=== PATIENT | female | born 1965 | race Caucasian/White ===

== ENCOUNTER → 2018-07-24 | Outpatient (CLI) | payer OTHER ==
[~2018-07-24] MED LIST: BUSPIRONE HCL10 MG PO; CLONAZEPAM 1 MG1 M1 PO; CLONAZEPAM0.25 MG PO; CYMBALTA60 MG PO; ESTRADIOL 1 MG T1 M1 PO; FLEXERIL PO; NABUMETONE 750750 M1 PO; NEURONTIN600 MG PO; TOPROL XL25 MG PO; TRAMADOL 50 MG50 MG PO; ZOLPIDEM TARTRA10 MG PO
--- NOTE | ~2018-07-24 | 2DMMODE ---
[facility] [address] [address] 2 D/M-MODE ECHOCARDIOGRAM Name: JAMAICA SKINNER Room #: [facility] [id number] Admission: 07/24/18 Attend Phys: Juliocesar Klein MD Discharge: Date of : 67 Date of Service: 07/24/18 1623 Report #: [id number] THIS REPORT FOR: //name// APPROVED REPORT Study performed: 07/24/2018 13:29:19 EXAM: Comprehensive 2D, Doppler, and color-flow Echocardiogram Patient Location: Out-Patient Room #: Echo lab 2 Status: routine BSA: 1.83 HR: 81 bpm BP: 118/80 mmHg Rhythm: NSR Other Information Study Quality: Adequate Indications Palpitations Chest Pain 2D Dimensions RVDd: 24.64 mm IVSd: 9.95 (7-11mm) LVOT Diam: 20.45 (18-24mm) LVDd: 50.97 mm PWd: 8.71 (7-11mm) Ascending Ao: 27.25 (22-36mm) LVDs: 36.50 (25-40mm) Aortic Root: 30.31 mm IVC: 18.00 mm Volumes Left Atrial Volume (Systole) Single Plane 4CH: 62.45 mL Single Plane 2CH: 44.17 mL LA ESV Index: 30.00 mL/m2 Aortic Valve AoV Peak Arturo.: 1.24 m/s AO Peak Gr.: 6.16 mmHg LVOT Max P.47 mmHg LVOT Max V: 0.93 m/s FELICIA Vmax: 2.47 cm2 Mitral Valve E/A Ratio: 1.3 MV Decel. Time: 259.26 ms [facility] [place] [address] 2 D/M-MODE ECHOCARDIOGRAM Name: JAMAICA SKINNER Room #: [facility]#: [id number] Admission: 07/24/18 Attend Phys: Juliocesar Klein MD Discharge: Date of : 67 Date of Service: 07/24/18 1623 Report #: [id number] MV E Max Arturo.: 0.68 m/s MV A Arturo.: 0.54 m/s MV PHT: 75.18 ms IVRT: 129.18 ms Pulmonary Valve PV Peak Arturo.: 0.72 m/s PV Peak Gr.: 2.09 mmHg Pulmonary Vein P Vein S: 0.41 m/s P Vein A: 0.24 m/s P Vein D: 0.39 m/s P Vein A Dur.: 106.1 msec P Vein S/D Ratio: 1.05 Tricuspid Valve TR Peak Arturo.: 2.27 m/s TR Peak Gr.: 20.69 mmHg PA Pressure: 26.00 mmHg Left Ventricle The left ventricle is normal size. There is normal LV segmental wall motion. There is normal left ventricular wall thickness. Left ventricular systolic function is borderline. LVEF is 50-55%. The left ventricular diastolic function is normal. Right Ventricle The right ventricle is normal size. The right ventricular systolic function is normal. Atria The left atrium size is normal. The right atrium size is normal. Aortic Valve The aortic valve is normal in structure. No aortic regurgitation is present. There is no aortic valvular stenosis. Mitral Valve The mitral valve is normal in structure. Mild mitral regurgitation. No evidence of mitral valve stenosis. Tricuspid Valve The tricuspid valve is normal in structure. There is trace tricuspid regurgitation. Estimated PAP 26 mmHg. There is no pulmonary hypertension. Pulmonic Valve [facility] [address] [place] [address] 2 D/M-MODE ECHOCARDIOGRAM Name: JAMAICA SKINNER Room #: [facility]#: [id number] Admission: 07/24/18 Attend Phys: Juliocesar Klein MD Discharge: Date of : 67 Date of Service: 07/24/18 1623 Report #: [id number] The pulmonary valve is normal in structure. There is no pulmonic valvular regurgitation. Great Vessels The aortic root is normal in size. IVC is normal in size and collapses >50% with inspiration. Pericardium There is no pericardial effusion. <Conclusion> The left ventricle is normal size. There is normal left ventricular wall thickness. Left ventricular systolic function is borderline. The right ventricle is normal size. The left atrium size is normal. The aortic valve is normal in structure. Mild mitral regurgitation. There is trace tricuspid regurgitation. Estimated PAP 26 mmHg. There is no pericardial effusion. <ELECTRONICALLY SIGNED> By: Juliocesar Klein MD 07/24/18 1623 162 162 Juliocesar Klein MD /INF
--- NOTE | ~2018-07-24 | EXE ---
[facility] [address] [place] [address] STRESS ECHOCARDIOGRAM Name: JAMAICA SKINNER Room #: REG CL [facility]#: [id number] Admission: 07/24/18 Attend Phys: Juliocesar Klein MD Discharge: Date of : 67 Date of Service: 07/24/18 1632 Report #: [id number] THIS REPORT FOR: //name// APPROVED REPORT Study performed: 07/24/2018 13:49:52 Exam: Stress Echocardiogram Indication: Chest pain , Palpitations Patient Location: Out-Patient Stress Nurse: Sarah Jose RN Room #: Echo lab 2 Status: routine Ht: 5 ft 4 in HR: 85 bpm BP: 118/80 mmHg Rhythm: NSR Procedure The patient underwent an Exercise Stress Test using the Glenn Protocol. Blood pressure, heart rate, and EKG were monitored. An Echocardiogram was performed by railway signal technician in four stages in quad fashion. At peak stress, four selected images were obtained and placed side by side with resting images for comparison. Stress Test Details Stress Test: Exercise stress testing was performed using a Glenn protocol. HR Resting HR: 85 bpm Max Heart Rate (APMHR): 168 bpm Max HR Achieved: 179 bpm Target HR (85% APMHR): 142 bpm % of APMHR: 106 Recovery HR: 90 bpm HR response to stress: Normal HR response to stress BP Resting BP: 118/80 mmHg Max BP: 140/82 mmHg Recovery BP: 130/82 mmHg ECG Resting ECG: Sinus Rhythm Stress ECG: Sinus Rhythm, nonspecific ST-T abnormalities ST Change: Non-ischemic [facility] [address] [place] [address] STRESS ECHOCARDIOGRAM Name: BRODYJAMAICA AUGUSTIN Room #: REG CL [facility]#: [id number] Admission: 07/24/18 Attend Phys: Juliocesar Klein MD Discharge: Date of : 67 Date of Service: 07/24/18 1632 Report #: [id number] Clinical Reason for Termination: Maximal effort Exercise duration: 9 min sec Highest Stage Achieved: Stage 3: 3.4 mph at 14% grade. Exercise capacity: 10.4 METs Pre-Stress Echo The resting Echocardiogram showed normal left ventricular contractility with an estimated Ejection Fraction of about >55%. Normal wall motion in all segments on baseline images. Post-Stress Echo The stress Echocardiogram showed normal left ventricular contractility with an estimated Ejection Fraction of about 65-70%. Normal augmentation of wall motion in all segments on post stress images. Clinical Normal augmentation of myocardial wall segments using a 17 segment model. No clinical or ECG evidence for ischemia. Conclusion Clinical Response: Non-ischemic Exercise Capacity: Average Stress ECG Response: Non-ischemic Stress Echo Images: Non-ischemic The left ventricle is normal in size and wall thickness in both the rest and stress images. No prior study available for comparison. Other Information Study Quality: Good <Conclusion> The left ventricle is normal in size and wall thickness in both the rest and stress images. <ELECTRONICALLY SIGNED> By: Juliocesar Klein MD 07/24/181631 31 31 Juliocesar Klein MD /INF
== END ==
LOC: CV 07:22
DX: I34.0 Nonrheumatic mitral (valve) insufficiency (principal)

== ENCOUNTER → 2021-02-19 | Outpatient (CLI) | payer OTHER | LOC: SJCVC 14:35 | PROVIDERS: ATTEND Internal Medicine Cardiovascular Disease | DX: R94.31 Abnormal electrocardiogram [ECG] [EKG] (principal); I47.1 Supraventricular tachycardia; R00.2 Palpitations; R06.00 Dyspnea, unspecified; M79.7 Fibromyalgia; E03.9 Hypothyroidism, unspecified; M19.90 Unspecified osteoarthritis, unspecified site; Z90.710 Acquired absence of both cervix and uterus; Z98.890 Other specified postprocedural states; Z79.899 Other long term (current) drug therapy; Z87.891 Personal history of nicotine dependence ==

== ENCOUNTER → 2021-02-19 | Outpatient (CLI) | payer OTHER | LOC: CAT 15:09 | PROVIDERS: ATTEND Internal Medicine Cardiovascular Disease | DX: Z13.6 Encounter for screening for cardiovascular disorders (principal) ==

== ENCOUNTER → 2021-11-04 | Outpatient (CLI) | payer OTHER | LOC: SJCVC 13:10 | PROVIDERS: ATTEND Internal Medicine Cardiovascular Disease | DX: R94.31 Abnormal electrocardiogram [ECG] [EKG] (principal); R53.83 Other fatigue; R00.2 Palpitations; I47.1 Supraventricular tachycardia; E03.9 Hypothyroidism, unspecified; M19.90 Unspecified osteoarthritis, unspecified site; F41.9 Anxiety disorder, unspecified; F32.9 Major depressive disorder, single episode, unspecified; Z87.891 Personal history of nicotine dependence; Z79.899 Other long term (current) drug therapy; Z90.710 Acquired absence of both cervix and uterus; Z72.89 Other problems related to lifestyle ==

== ENCOUNTER → 2021-11-18 | Outpatient (CLI) | payer OTHER | LOC: SJCVCIMAG 13:40 | PROVIDERS: ATTEND Internal Medicine Cardiovascular Disease | DX: I08.3 Combined rheumatic disorders of mitral, aortic and tricuspid valves (principal); I47.1 Supraventricular tachycardia; R00.2 Palpitations; F41.9 Anxiety disorder, unspecified; F32.9 Major depressive disorder, single episode, unspecified; E03.9 Hypothyroidism, unspecified; M19.90 Unspecified osteoarthritis, unspecified site; M79.7 Fibromyalgia; Z87.891 Personal history of nicotine dependence; Z72.89 Other problems related to lifestyle; Z79.899 Other long term (current) drug therapy ==